=== PATIENT | female | born 1940 | race American Indian/Alaskan Native ===

== ENCOUNTER 2020-06-11 04:49 | Observation (INO) | payer MEDICARE ==
[2020-06-11] MEDS ORDERED: MORPHINE 4 MG/1 ML INJ IV ONE (06:17)
--- NOTE | 2020-06-11 06:17 | Emergency Department Report ---
HPI - General Chief Complaint: Extremity Injury, Lower Time Seen by Provider: 06/11/20 06:07 - HPI HPI: This is an 80-year-old -[place] female who presents to the emergency department with complaint of pain to the right foot. 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 However, the pain increased since yesterday. The patient has an appointment to have a revascularization procedure done today by Dr. Blue. They contacted the office of Dr. Blue yesterday and were told to come to the emergency department if the pain increased or was unmanageable at home. 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 She also has a past medical history of insulin-dependent diabetes, GERD, hypertension, neuropathy. She has been taking her home pain medication without any relief. ED Past Medical Hx - Past Medical History Previous Medical History?: Yes Hx Hypertension: Yes Hx Diabetes: Yes Hx GERD: Yes Additional medical history: neuropathy. decreased blood flow to bilateral lower extremities - Surgical History Past Surgical History?: Yes Additional Surgical History: BACK SURGERY disc surgery with hardware placement 2009. HYSTERECTOMY. right big toe amputed. right Fem-pop - Social History Smoking Status: Never Smoker Substance Use Type: None - Medications Home Medications: Home Medications Medication Instructions Recorded Confirmed Last Taken Type Cholecalciferol (Vitamin D3) 5,000 unit PO DAILY 08/15/15 06/11/20 08/14/15 History [Vitamin D] HYDROcodone/APAP 5-325 [[place] 1 - 2 each PO Q6HR PRN #20 tablet 08/15/15 06/11/20 Unknown Rx 5/325] Insulin Glargine,Hum.rec.anlog 30 units SQ QHS 08/15/15 06/11/20 08/14/15 History [Lantus Solostar] Insulin Lispro [HumaLOG VIAL] 12 units SQ AC 08/15/15 06/11/20 08/14/15 History Losartan/Hydrochlorothiazide 0.5 tab PO QDAY 08/15/15 06/11/20 08/14/15 History [Hyzaar 100-25 TAB] Metoprolol [Lopressor] 100 mg PO QDAY 08/15/15 06/11/20 08/14/15 History Omeprazole [PriLOSEC] 40 mg PO QDAY 08/15/15 06/11/20 08/14/15 History Pravastatin Sodium [Pravastatin] 80 mg PO QHS 08/15/15 06/11/20 08/14/15 History Terazosin (Nf) [Hytrin] 10 mg PO QHS 08/15/15 06/11/20 08/14/15 History amLODIPine [Norvasc] 10 mg PO DAILY 08/15/15 06/11/20 08/14/15 History Apixaban [Eliquis] 5 mg PO BID #60 tablet 06/11/20 Unknown Rx Aspirin EC [Halfprin EC] 81 mg PO QDAY #30 tablet. 06/11/20 Unknown Rx cilostazoL [Pletal] 50 mg PO BID #60 tablet 06/11/20 Unknown Rx ED Review of Systems ROS: Stated complaint: RT FOOT PAIN Other details as noted in HPI Comment: All other systems reviewed and negative Constitutional: denies: chills, fever Eyes: denies: eye pain, vision change ENT: denies: ear pain, throat pain Respiratory: denies: cough, shortness of breath Cardiovascular: denies: chest pain, palpitations Gastrointestinal: denies: abdominal pain, vomiting Genitourinary: denies: dysuria, discharge Musculoskeletal: arthralgia, myalgia. denies: joint swelling Skin: change in color. denies: rash Neurological: denies: weakness, numbness Physical Exam - Physical Exam Vital Signs: Vital Signs 06/11/20 04:54 Temperature 98.4 F Pulse Rate 117 H Respiratory 17 Rate Blood Pressure 134/72 O2 Sat by Pulse 99 Oximetry Physical Exam: GENERAL: The patient is well-developed well-nourished. HENT: Normocephalic. Atraumatic. Patient has moist mucous membranes. EYES: Extraocular motions are intact. NECK: Supple. Trachea is midline. CHEST/LUNGS: Clear to auscultation. There is no respiratory distress noted. HEART/CARDIOVASCULAR: Regular. There is no tachycardia. There is no murmur. ABDOMEN: Abdomen is soft, nontender. Patient has normal bowel sounds. There is no abdominal distention. SKIN: Skin is warm and dry. The second toe of the right foot is dark and necrotic appearing. NEURO: The patient is awake, alert, and oriented. The patient is cooperative. The patient has no focal neurologic deficits. Normal speech. MUSCULOSKELETAL: There is tenderness to palpation of the right foot and toes of the right foot. Previous amputation of the right great toe. ED Course Vital Signs 06/11/20 04:54 Temperature 98.4 F Pulse Rate 117 H Respiratory 17 Rate Blood Pressure 134/72 O2 Sat by Pulse 99 Oximetry - Consultations Consultation #1: 06/11/20 06:[address] Day, the partner of Dr. Blue. He agrees with the plan for admission and pain control. The patient has a procedure scheduled for around 8 AM this morning with vascular surgery. ED Medical Decision Making - Lab Data Result diagrams: 06/11/20 07:01 06/11/20 07:01 - Medical Decision Making This patient presents with progressively worsening pain to the right foot. She has known arterial insufficiency and is due to have a revascularization procedure done this morning. The patient's second toe appears blackened and necrotic. There is reproducible tenderness to palpation along the right foot. Her labs are mostly unremarkable including CBC and metabolic panel, but the patient does have hypokalemia with potassium 2.9. I placed an order to replace this with potassium chloride. Vascular surgery was contacted regarding the patient's presentation. Patient will be admitted to the hospital service and was accepted for admission by Dr. Castro. Critical Care Time: No Critical care attestation.: If time is entered above; I have spent that time in minutes in the direct care of this critically ill patient, excluding procedure time. ED Disposition Clinical Impression: Arterial insufficiency of lower extremity, Right foot pain, Intractable pain Disposition: OP ADMIT IP TO THIS HOSP Is pt being admited?: Yes Condition: Serious Time of Disposition: 08:00
[2020-06-11 07:37] LABS: Basophils % (Auto) 0.7 % (0.0-1.8); Eosinophils # (Auto) 0.2 K/mm3 (0.0-0.4); Eosinophils % (Auto) 2.8 % (0.0-4.3); Hematocrit 33.6 % (30.3-42.9); Lymphocytes % (Auto) 16.8 % (13.4-35.0); Mean Corpuscular HGB Conc 33 % (30-34); Mean Corpuscular Volume 81 fl (79-97); Monocytes # (Auto) 0.4 K/mm3 (0.0-0.8); Monocytes % (Auto) 6.5 % (0.0-7.3); Platelet Count 421 K/mm3 (140-440); Red Blood Count 4.15 M/mm3 (3.65-5.03); Red Cell Distribution Width 15.3 % (13.2-15.2)
[2020-06-11 07:47] LABS: INR 1.31 (0.87-1.13)
[2020-06-11 07:58] LABS: Blood Urea Nitrogen 10 mg/dL (7-17); Calcium 9.1 mg/dL (8.4-10.2); Hemolysis Index 1
[2020-06-11 08:01] LABS: BUN/Creatinine Ratio 14
--- NOTE | 2020-06-11 08:12 | History and Physical Report ---
History of Present Illness Date of examination: 06/11/20 Date of admission: 06/11/2020 Chief complaint: Right lower extremity pain History of present illness: 80-year-old -[place]ian female with significant past medical history of right lower limb ischemia, diabetes mellitus type 2 and hypertension who presents to the emergency department with complaint of pain to the right foot. 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 However, the pain increased since yesterday. The patient has an appointment to have a revascularization procedure done today by Dr. Blue. They contacted the office of Dr. Blue yesterday and were told to come to the emergency department if the pain increased or was unmanageable at home. 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 She also has a past medical history of insulin-dependent diabetes, GERD, hypertension, neuropathy. She has been taking her home pain medication without any relief. Past History Past Medical History: diabetes, hypertension Past Surgical History: Other (Right great toe amputation) Social history: no significant social history Family history: no significant family history Medications and Allergies Allergies Allergy/AdvReac Type Severity Reaction Status Date / Time No Known Allergies Allergy Verified 08/15/15 13:43 Home Medications Medication Instructions Recorded Confirmed Last Taken Type Cholecalciferol (Vitamin D3) 5,000 unit PO DAILY 08/15/15 08/15/15 08/14/15 History [Vitamin D] Fluticasone [Flonase] 1 spray NS QDAY 08/15/15 08/15/15 08/14/15 History HYDROcodone/APAP 5-325 [[place] 1 - 2 each PO Q6HR PRN #20 tablet 08/15/15 Unknown Rx 5/325] Ibuprofen [Motrin 800 MG tab] 800 mg PO Q8HR PRN #20 tablet 08/15/15 Unknown Rx Insulin Glargine,Hum.rec.anlog 30 units SQ QHS 08/15/15 08/15/15 08/14/15 History [Lantus Solostar] Insulin Lispro [HumaLOG VIAL] 12 units SQ AC 08/15/15 08/15/15 08/14/15 History Losartan/Hydrochlorothiazide 0.5 tab PO QDAY 08/15/15 08/15/15 08/14/15 History [Hyzaar 100-25 TAB] Metoprolol [Lopressor] 100 mg PO QDAY 08/15/15 08/15/15 08/14/15 History Omeprazole [PriLOSEC] 40 mg PO QDAY 08/15/15 08/15/15 08/14/15 History Pravastatin Sodium [Pravastatin] 80 mg PO QHS 08/15/15 08/15/15 08/14/15 History Terazosin (Nf) [Hytrin] 10 mg PO QHS 08/15/15 08/15/15 08/14/15 History amLODIPine [Norvasc] 10 mg PO DAILY 08/15/15 08/15/15 08/14/15 History Review of Systems All systems: negative Exam - Constitutional Vitals: Temp Pulse Resp BP Pulse Ox 98.4 F 109 H 22 134/72 99 06/11/20 04:54 06/11/20 07:03 06/11/20 07:03 06/11/20 04:54 06/11/20 07:03 General appearance: Present: no acute distress, well-nourished - EENT Eyes: Present: PERRL ENT: hearing intact, clear oral mucosa - Neck Neck: Present: supple, normal ROM - Respiratory Respiratory effort: normal Respiratory: bilateral: CTA - Cardiovascular Heart Sounds: Present: S1 & S2. Absent: rub, click - Extremities Extremities: abnormal (Right lower extremity ischemia diminished DP and PT pulses. Right second toe gangrene) Peripheral Pulses: within normal limits - Abdominal General gastrointestinal: Present: soft, non-tender, non-distended, normal bowel sounds Female genitourinary: Present: normal - Integumentary Integumentary: Present: clear, warm, dry - Musculoskeletal Musculoskeletal: gait normal, strength equal bilaterally - Psychiatric Psychiatric: appropriate mood/affect, intact judgment & insight - Neurologic Neurologic: CNII-XII intact, moves all extremities Results - Labs CBC & Chem 7: 06/11/20 07:01 06/11/20 07:01 Labs: Laboratory Last Values WBC 5.9 K/mm3 (4.5-11.0) 06/11/20 07:01 RBC 4.15 M/mm3 (3.65-5.03) 06/11/20 07:01 Hgb 11.0 gm/dl (10.1-14.3) 06/11/20 07:01 Hct 33.6 % (30.3-42.9) 06/11/20 07:01 MCV 81 fl (79-97) 06/11/20 07:01 MCH 27 pg (28-32) L 06/11/20 07:01 MCHC 33 % (30-34) 06/11/20 07:01 RDW 15.3 % (13.2-15.2) H 06/11/20 07:01 Plt Count 421 K/mm3 (140-440) 06/11/20 07:01 Lymph % (Auto) 16.8 % (13.4-35.0) 06/11/20 07:01 [place] % (Auto) 6.5 % (0.0-7.3) 06/11/20 07:01 Eos % (Auto) 2.8 % (0.0-4.3) 06/11/20 07:01 Baso % (Auto) 0.7 % (0.0-1.8) 06/11/20 07:01 Lymph # (Auto) 1.0 K/mm3 (1.2-5.4) L 06/11/20 07:01 [place] # (Auto) 0.4 K/mm3 (0.0-0.8) 06/11/20 07:01 Eos # (Auto) 0.2 K/mm3 (0.0-0.4) 06/11/20 07:01 Baso # (Auto) 0.0 K/mm3 (0.0-0.1) 06/11/20 07:01 Seg Neutrophils % 73.2 % (40.0-70.0) H 06/11/20 07:01 Seg Neutrophils # 4.3 K/mm3 (1.8-7.7) 06/11/20 07:01 PT 16.3 Sec. (12.2-14.9) H 06/11/20 07:01 INR 1.31 (0.87-1.13) H 06/11/20 07:01 APTT 40.0 Sec. (24.2-36.6) H 06/11/20 07:01 Sodium 143 mmol/L (137-145) 06/11/20 07:01 Potassium 2.9 mmol/L (3.6-5.0) L* 06/11/20 07:01 Chloride 102.7 mmol/L (98-107) 06/11/20 07:01 Carbon Dioxide 29 mmol/L (22-30) 06/11/20 07:01 Anion Gap 14 mmol/L 06/11/20 07:01 BUN 10 mg/dL (7-17) 06/11/20 07:01 Creatinine 0.7 mg/dL (0.6-1.2) 06/11/20 07:01 Estimated GFR > 60 ml/min 06/11/20 07:01 BUN/Creatinine Ratio 14 % 06/11/20 07:01 Glucose 195 mg/dL (65-100) H 06/11/20 07:01 Calcium 9.1 mg/dL (8.4-10.2) 06/11/20 07:01 [place]/IV: IV Catheter Type [Left Hand] Peripheral IV Assessment and Plan Assessment and plan: Right lower limb ischemia. Patient was scheduled for revascularization procedure this a.m. but is now admitted for increased pain. Vascular surgery consultation and likely to proceed with revascularization procedure. Right second toe gangrene/cellulitis. Patient will be started on empiric antibiotics of vancomycin and Zosyn. Sepsis. Patient meets criteria given the tachycardia, tachypnea and diagnosis of right foot gangrene/cellulitis. Patient will be placed on the sepsis pathway started on IV antibiotics. Follow-up lactic acid levels. PVD. As above. Vascular surgery consultation pending. Diabetes mellitus type 2, uncontrolled. Check hemoglobin A1c Accu-Cheks and sliding scale insulin. Resume home insulin regimen. Hypertension. Resume antihypertensive medications. Hypokalemia. Replete potassium.
[2020-06-11] MEDS ORDERED: HYDROmorphone 1 MG/1 ML INJ IV PRN (08:15)
[2020-06-11] MEDS ORDERED: VANCOMYCIN 1,250 MG in SODIUM CHLORIDE 0.9% 500 ML 500 ML IV ONE (08:15)
[2020-06-11] MEDS ORDERED: ACETAMINOPHEN 325 MG TAB PO PRN (08:15)
[2020-06-11] MEDS ORDERED: POTASSIUM CHLORIDE ER 20 MEQ TAB PO ONE (08:15)
[2020-06-11] MEDS ORDERED: POTASSIUM CHLORIDE 10 MEQ 10 MEQ/100 ML BAG IV ONE (09:00)
[2020-06-11] MEDS ORDERED: VANCOMYCIN PHARMACY TO DOSE IV SCH (09:00)
[2020-06-11] MEDS ORDERED: PIPERACIL/TAZOBACTA 4.5/NS 100 4.5 GM/100 ML VIAL IV SCH (09:00)
[2020-06-11] MEDS ORDERED: VANCOMYCIN 1,500 MG in SODIUM CHLORIDE 0.9% 500 ML 500 ML IV ONE (09:30)
[2020-06-11] MEDS ORDERED: HEPARIN/NS 5000 UNIT/500ML 1,000 ML IR ONE (09:52)
[2020-06-11] MEDS ORDERED: SODIUM CHLORIDE 0.9% 500 ML 500 ML ONE (09:53)
[2020-06-11] MEDS ORDERED: VERAPAMIL 5 MG/2 ML INJ ONE (09:54)
[2020-06-11] MEDS ORDERED: ceFAZolin/Water 2 GM/20 ML 2 GM/20 ML SYRINGE IV ONE (10:50)
[2020-06-11] MEDS: fentaNYL 100 MCG/2 ML INJ ONE ×7 (11:03→13:53)
[2020-06-11] MEDS: MIDAZOLAM 2 MG/2 ML INJ ONE ×7 (11:03→13:53)
[2020-06-11] MEDS: LIDOCAINE (2%) 20 MG/1 ML VIAL 20 ML MDV INFILTRATI ONE ×3 (11:03→12:30)
[2020-06-11] MEDS: HEPARIN 10,000 UNITS/10 ML VIAL ONE ×5 (11:09→13:30)
[2020-06-11] MEDS: NITROGLYCERIN SYRINGE 3 ML ONE ×2 (11:09→11:13)
[2020-06-11] MEDS ORDERED: HEPARIN/NS 5000 UNIT/500ML 500 ML IR ONE ×2 (11:49→13:15)
[2020-06-11] MEDS ORDERED: NITROGLYCERIN 2% OINT 1 GM TP ONE (13:54)
--- NOTE | 2020-06-11 14:23 | Consultation ---
History of Present Illness - Reason for Consult Consult date: 06/11/20 PVD lower extremities Requesting physician: HELEN MORALES - History of Present Illness 80-year-old -Portuguese female with significant past medical history of right lower limb ischemia, diabetes mellitus type 2 and hypertension who presents to the emergency department with complaint of pain to the right foot. 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 However, the pain increased since yesterday. They contacted the office of Dr. Blue yesterday and were told to come to the emergency department if the pain increased or was unmanageable at home. 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 She also has a past medical history of insulin-dependent diabetes, GERD, hypertension, neuropathy. She has been taking her home pain medication without any relief. Patient presented to the emergency room due to acute on chronic arterial rest pain. She requires revascularization. Risks, benefits, and alternatives discussed. Past History Past Medical History: diabetes, hypertension Past Surgical History: Other (Right great toe amputation) Social history: no significant social history Family history: no significant family history Medications and Allergies Allergies Allergy/AdvReac Type Severity Reaction Status Date / Time No Known Allergies Allergy Verified 08/15/15 13:43 Home Medications Medication Instructions Recorded Confirmed Last Taken Type Cholecalciferol (Vitamin D3) 5,000 unit PO DAILY 08/15/15 06/11/20 08/14/15 History [Vitamin D] HYDROcodone/APAP 5-325 [[place] 1 - 2 each PO Q6HR PRN #20 tablet 08/15/15 06/11/20 Unknown Rx 5/325] Insulin Glargine,Hum.rec.anlog 30 units SQ QHS 08/15/15 06/11/20 08/14/15 History [Lantus Solostar] Insulin Lispro [HumaLOG VIAL] 12 units SQ AC 08/15/15 06/11/20 08/14/15 History Losartan/Hydrochlorothiazide 0.5 tab PO QDAY 08/15/15 06/11/20 08/14/15 History [Hyzaar 100-25 TAB] Metoprolol [Lopressor] 100 mg PO QDAY 08/15/15 06/11/20 08/14/15 History Omeprazole [PriLOSEC] 40 mg PO QDAY 08/15/15 06/11/20 08/14/15 History Pravastatin Sodium [Pravastatin] 80 mg PO QHS 08/15/15 06/11/20 08/14/15 History Terazosin (Nf) [Hytrin] 10 mg PO QHS 08/15/15 06/11/20 08/14/15 History amLODIPine [Norvasc] 10 mg PO DAILY 08/15/15 06/11/20 08/14/15 History Apixaban [Eliquis] 5 mg PO BID #60 tablet 06/11/20 Unknown Rx Aspirin EC [Halfprin EC] 81 mg PO QDAY #30 tablet. 06/11/20 Unknown Rx cilostazoL [Pletal] 50 mg PO BID #60 tablet 06/11/20 Unknown Rx Active Meds: Active Medications Acetaminophen (Acetaminophen 325 Mg Tab) 650 mg PO Q6H PRN PRN Reason: Pain, Mild (1-3) Hydromorphone HCl (Hydromorphone 1 Mg/1 Ml Inj) 0.25 mg IV Q4H PRN PRN Reason: Pain, Moderate (4-6) Piperacillin Sod/Tazobactam Sod (Zosyn/Ns 4.5gm/100ml) 4.5 gm in 100 mls @ 200 mls/hr IV Q8H AMBER; Protocol Vancomycin HCl (Vancomycin/Ns 1 Gm/250 Ml) 1 gm in 250 mls @ 166.667 mls/hr IV Q24H AMBER Review of Systems All systems: negative (see HPI) Exam - Constitutional Vitals: Temp Pulse Resp BP Pulse Ox 98.4 F 96 H 18 132/72 99 06/11/20 09:21 06/11/20 09:21 06/11/20 09:21 06/11/20 09:21 06/11/20 09:21 General appearance: Present: no acute distress - EENT Eyes: Present: EOM intact ENT: hearing intact - Neck Neck: Present: supple - Respiratory Respiratory effort: normal - Extremities Extremities: normal temperature, normal color, abnormal (Gangrene of the right foot, sensory and motor chronic deficits of the right lower extremity, nonpalpable pedal pulses) - Abdominal General gastrointestinal: Present: soft, non-tender - Psychiatric Psychiatric: appropriate mood/affect, cooperative Results - Labs CBC & Chem 7: 06/11/20 07:01 06/11/20 07:01 Labs: Abnormal lab results 06/11/20 06/11/20 06/11/20 Range/Units 07:01 07:01 07:01 MCH 27 L (28-32) pg RDW 15.3 H (13.2-15.2) % Lymph # (Auto) 1.0 L (1.2-5.4) K/mm3 Seg Neutrophils % 73.2 H (40.0-70.0) % PT 16.3 H (12.2-14.9) Sec. INR 1.31 H (0.87-1.13) APTT 40.0 H (24.2-36.6) Sec. Potassium 2.9 L* (3.6-5.0) mmol/L Glucose 195 H (65-100) mg/dL Assessment and Plan 80-year-old female with severe peripheral vascular disease of the bilateral lower extremities complicated by multiple prior procedures of the right lower extremity by outside physician who was sent for evaluation. Rest pain is worsened. Plan for multiple access site approach angiogram and possible revascularization of the bilateral lower extremities. Risks, benefits, and alternatives discussed. After completed, patient can likely be discharged. Afterwards, the patient will need to be converted from Coumadin to Eliquis, and on aspirin and cilostazol. Will need to be on omeprazole for GI prophylaxis. Discussed with family and patient. Samples provided. Prescription provided.
--- NOTE | 2020-06-11 14:24 | Operative Report ---
Operative Report Operative Report: Date of procedure: 06/11/20 Pre-op diagnosis: PVD of the bilateral lower extremities, right worse than left Post-op diagnosis: same EXAM: 1. Ultrasound guided access of the left radial artery 2. Selection of the abdominal aorta with angiography 3. Selection of the left common iliac artery with angiography 4. Fluoroscopic guided placement/selection of the left profunda femoral artery with 6 mm spider EPD 6. Angioplasty of the left external iliac artery with 6 mm x 40 mm angioplasty balloon 7. Capture of the embolic protection device 8. Selection of the right common iliac artery with angiography 9. Ultrasound guided access of the right proximal superficial femoral artery 10. Flossing across the right common femoral artery occlusion 11. Angioplasty of the right proximal superficial femoral artery, right common femoral artery, right external iliac artery and right common iliac artery with 4 mm x 150 mm angioplasty balloon. 12. Angioplasty of the right profunda femoral artery, common femoral artery, external iliac artery and right common iliac artery with a 6 mm x 150 mm angioplasty balloon 13. Removal of the left radial sheath with application of a TR band. Contrast: please see nursing report for full details Procedure: The risks, benefits, and alternatives were discussed with the patient; written informed consent was obtained. The left radial artery and the groins were prepped and draped in a sterile fashion. Ultrasound was used to evaluate the left radial artery which was patent. Under direct ultrasound access, the left radial artery was accessed with a 21-gauge micropuncture needle. 0.018 inch wire was passed into the radial artery. Needle was exchanged for a 5/6 Glidesheath slender. Radial cocktail was administered. Wire and catheter were then used to select the abdominal aorta, and the left common iliac artery, left external iliac artery, and profunda femoral artery. Digital subtraction angiography was performed intermittently. Digital subtraction angiography demonstrated patency of the infrarenal abdominal aorta, patency of the left common iliac artery, 50% narrowing of the left mid external iliac artery, 99% narrowing of the left distal external iliac artery, less than 20 to 30% narrowing of the left common femoral artery. The proximal profunda femoral artery had a 30% narrowing. The left proximal superficial femoral artery was occluded. The right common iliac artery had a proximal 90% narrowing, and the proximal right external iliac artery had a 70% narrowing. The right distal external iliac artery had a 90% narrowing. The proximal right common femoral artery was patent and there was numerous collaterals extending from it. The mid right common femoral artery was occluded with distal right common femoral artery r econstitution. This appeared to be from postoperative changes as it appeared to be from where the nicolas of the graft was sewn into the vessel. Patient was then fully heparinized. Sheath was exchanged for a 105 cm 6 Divehi glide sheath slender which was then used to access the left common iliac artery. 6 mm spider embolic protection device was then partly deployed in the left profunda femoral artery with the basket in the common femoral artery. 6 mm x 40 mm angioplasty balloon was then used to perform angioplasty of the left external iliac arteries at the area of moderate narrowing in the area of critical narrowing. This was performed at burst pressure within the stent struts. Digital subtraction angiography demonstrated less than 20% residual narrowing of the previous area of moderate narrowing and less than 30% residual narrowing of the previous area of critical narrowing. At this point, the embolic protection device was retrieved, and the runoff was reevaluated demonstrating no change in runoff. His sheath was retracted and the right common iliac artery and external iliac artery was selected. Digital subtraction angiography was performed which demonstrated the above-me ntioned findings of the right side. In addition, the right proximal and mid superficial femoral artery had high-grade 70% narrowings. There is a mid vessel collateral and after this mid superficial femoral artery collateral, the superficial femoral artery was subsequently occluded. There was a 30% narrowing of the right profunda femoral artery ostium. The rest of the vessel was widely patent and hypertrophied. Sheath was then used to engage the right common iliac artery. Wire and catheter were then used to attempt to cross the right common femoral artery occlusion from a radial approach, but this was ultimately unsuccessful. Ultrasound was then used to evaluate the right proximal superficial femoral artery. Under direct ultrasound guidance, right proximal superficial femoral artery was accessed with a 21-gauge micropuncture needle. 0.018 inch wire was passed into the artery. Needle was exchanged for a transitional dilator. 0.018 inch wire and inner portion of the transitional dilator were then removed and digital subtraction angiography was performed confirming position with the transitional dilator abutting the common femoral artery. Glidewire advantage was then used to cross the right common femoral artery occlusion and the wire was then snared with a radial approach. Radial catheter was then advanced over the wire and a 0.018 inch wire was then passed into the superficial femoral artery. 4 mm x 150 mm angioplasty balloon was then used to predilate the right proximal superficial femoral artery, common femoral artery, external iliac artery and common iliac artery. Catheter was then advanced over the wire and the wire was manipulated into the profunda femoral artery. 6 mm x 150 mm angioplasty balloon was advanced over the wire and used to perform angioplasty of the right proximal profundofemoral artery, the common femoral artery, external iliac artery, and common iliac artery. Digital subtraction angiography was performed demonstrating 30% residual narrowing of the right common iliac artery, and 40% narrowing of the right proximal external iliac artery, and distal external iliac artery. The right common femoral artery had a 30% residual narrowing in the AP direction with a mild nonflow limiting dissection. The profunda femoral artery was now patent. I then assessed our stent selection, but we did not have stents that were on a 150 cm or 135 cm shaft and therefore I abandoned attempts at stenting these areas at this intervention. I then switched the wire from the profunda femoral artery into the superficial femoral artery. I then used a 4 mm x 150 mm angioplasty balloon and performed angioplasty of the proximal superficial femoral artery at the area where I entered the vessel at which point I removed the transitional dilator. An gioplasty was performed for 5 minutes and external pressure was held. Digital subtraction angiography was performed demonstrating 30% residual narrowing of the right proximal superficial femoral artery, no extravasation or pseudoaneurysm from the right superficial femoral artery, and the above- mentioned findings. At this point, I determined that intervention was completed for now. All wires, catheters, and sheaths were removed and TR band was applied to the left radial artery. Patient tolerated the procedure well. No immediate postprocedural complications. Anesthesia: local (w/ conscious sedation) Remnants Cutter: SHANTA ROME MD Estimated blood loss: minimal Condition: stable
[2020-06-11] MEDS ORDERED: ASPIRIN EC 81 MG TAB PO SCH (15:00)
[2020-06-11] MEDS ORDERED: CILOSTAZOL 100 MG TAB PO SCH (15:30)
[2020-06-11 16:15] VITALS: BP 155/82
[2020-06-12] MEDS ORDERED: VANCOMYCIN/NS 1 GM/250 ML 1 GM/250 ML BAG IV SCH (10:00)
== END 2020-06-11 16:43 | disposition home or self-care (01) ==
LOC: ED 04:49 → 4A 08:01
PROVIDERS: ADMIT Hospitalist; ATTEND Hospitalist
DX: A41.9 Sepsis, unspecified organism (principal); I70.221 Atherosclerosis of native arteries of extremities with rest pain, right leg; I70.262 Atherosclerosis of native arteries of extremities with gangrene, left leg; M79.671 Pain in right foot; I10 Essential (primary) hypertension; E87.6 Hypokalemia; K21.9 Gastro-esophageal reflux disease without esophagitis; E11.9 Type 2 diabetes mellitus without complications; Z98.890 Other specified postprocedural states; Z79.4 Long term (current) use of insulin; Z79.82 Long term (current) use of aspirin
CPT/HCPCS: 36415; 37220; 37224; 75625; 75716; 76937; 80048; 85025; 85610; 85730; 96374; 99284; C1725; C1769; C1773; C1884; C1887; C1894; G0378; J0690; J1644; J2250; J2270; J3010; J7040; Q9967